=== PATIENT | female | born 1945 | race Caucasian/White ===

== ENCOUNTER → 2017-10-10 | Outpatient (CLI) | payer OTHER ==
[~2017-10-10] MED LIST: AMITRIPTYLINE H25 M2 PO; ASPIR 8181 MG PO; ASPIRIN325 PO; CLARITIN10 MG PO; COREG3.125 MG PO; DIABETA 5MG TABL5 MG PO; EFFIENT10 MG PO; GLYBURIDE 2.52.5 MG PO; LISINOPRIL5 MG PO; METFORMIN HCL500 MG PO; NORCO 5-325 TA1 EACH PO; PREDNISONE 20 M20 M1 PO; SIMVASTATIN40 MG PO; VENTOLIN HFA 1818 GM INH; VITAMIN D3400 UNIT PO
== END ==
LOC: M.MRI 10:44
DX: G44.52 New daily persistent headache (NDPH) (principal); R53.83 Other fatigue

== ENCOUNTER → 2017-12-05 | Outpatient (CLI) | payer OTHER ==
--- NOTE | 2017-12-08 18:02 | SLEEP ---
[address] [address] SLEEP STUDY REPORT Name: ONUR ALEJANDRA Room: [facility]#: [id number] Admission: 12/05/17 Attend Phys: Jean Carlos Reinoso Discharge: Date of : 45 Report #: [id number] THIS REPORT FOR: //name// CC: Cherelle Johns This study has been reviewed in its entirety by a board certified sleep specialist DATE OF SERVICE: 12/07/2017 ATTENDING PHYSICIAN: Dr. Cherelle Johns. The patient is 71 years old who weighs 154 pounds and is 64 inches tall with a BMI of 26.4. The patient's [place] score was 9. The patient underwent a diagnostic sleep study at [facility] to rule out ROSEY. During the night study, the patient spent 463 minutes in bed and slept for 252 minutes with a low sleep efficiency of 54%. Sleep latency was 35 minutes, which was prolonged with a REM latency of 241 minutes. Overall, sleep architecture showed normal stage 1 and stage 2 sleep, increased slow wave and slightly reduced REM sleep, which was 16% of the total sleep time. During the night study, the patient had 1 central apnea, no mixed apneas and no obstructive apneas. The patient had 27 hypopneas. The patient's apnea hypopnea index was 6.7 per hour. REM index of 22.5 per hour and a supine index of 7.5 per hour. EKG monitoring revealed normal sinus rhythm. Average heart rate was 78 beats per minute. No sustained arrhythmias were observed. PLMs were seen at an index of 86 per hour and 22 per hour caused EEG arousals. Nocturnal oximetry study revealed an average oxygen saturation of 91% with a low dose of 81%. 77 minutes were spent at an oxygen saturation between 80% and 89%. There was a sustained pattern of nocturnal hypoxia, but majority of the time, oxygen saturation remained between 85% and 89% suggesting hypoventilation. Due to low AHI, the patient did not meet the split night criteria for CPAP initiation. IMPRESSION: 1. Mild sleep apnea-hypopnea syndrome with moderate increase during REM sleep. Total AHI of 6.7 per hour with a REM AHI of 22.5 per hour. 2. Mild sustained nocturnal hypoxia suggesting hypoventilation. 3. Severe periodic limb movements at an index of 86 per hour and 22 per hour [place] [address] SLEEP STUDY REPORT Name: ONUR ALEJANDRA Room: [facility]#: [id number] Admission: 12/05/17 Attend Phys: Jean Carlos Reinoso Discharge: Date of : 45 Report #: [id number] RECOMMENDATIONS: 1. The patient did not meet the split night criteria due to low AHI. If the patient is clinically symptomatic, then the patient's sleep apnea can be treated with either an oral appliance or a trial of CPAP titration. 2. If the patient undergoes CPAP titration, then she should be followed up in 4-6 weeks to assess compliance with CPAP and to document clinical improvement. 3. Weight loss is advised. 4. Avoid central nervous system depressants. 5. The patient should also be further evaluated for symptoms of restless legs during the day. 6. The patient had reduced sleep efficiency of 54%. If this is a chronic condition, then it should be further evaluated and treated according to the etiology. <ELECTRONICALLY SIGNED> By: Pro Ryder MD 12/08/17 1802 2125 [id number] Ryder MD /nt
== END ==
LOC: M.SLEEPLAB 19:47
DX: G47.9 Sleep disorder, unspecified (principal); R09.02 Hypoxemia; R53.83 Other fatigue

== ENCOUNTER 2018-08-07 09:26 | Inpatient (IN) | payer OTHER ==
[~2018-08-07] VITALS: Ht 165.1 cm; Wt 72.6 kg
[2018-08-07 09:27] VITALS: BP 166/68
[2018-08-07] MEDS ORDERED: ATORVASTATIN CA40 MG PO (09:39)
[2018-08-07] MEDS ORDERED: AMARYL2 MG PO (09:40)
[2018-08-07] MEDS ORDERED: LISINOPRIL5 MG PO (09:40)
[2018-08-07] MEDS ORDERED: REPAGLINIDE1 MG PO (09:40)
[2018-08-07] MEDS ORDERED: TOUJEO SOL300 UNIT/1 SUBQ (09:41)
[2018-08-07 09:43] LABS: ABSOLUTE BASOPHILS 0.2 thou/uL (0.0-0.2); ABSOLUTE EOSINOPHILS 0.2 thou/uL (0.0-0.7); ABSOLUTE LYMPHOCYTES 2.3 thou/uL (0.8-5.3); ABSOLUTE MONOCYTES 0.8 thou/uL (0.0-1.2); ABSOLUTE NEUTROPHILS 15.2 thou/uL (1.6-8.1); BASOPHILS 1.1 %; EOSINOPHILS 0.9 %; HEMATOCRIT 43.4 % (37.0-47.0); HEMOGLOBIN 13.9 gm/dL (12.0-15.0); LYMPHOCYTES 12.1 %; MCH 26.7 pg (26.0-34.0); MCHC 32.1 g/dL (28.0-37.0); MCV 82.9 fL (80.0-100.0); MONOCYTES 4.2 %; MPV 7.7 fl. (7.2-11.1); NUCLEATED RBCS 0 /100WBC; PLATELET COUNT* 423 thou/uL (150-400); POLYS 81.7 %; RBC 5.23 mil/uL (4.20-5.00); RDW-CV 14.5 % (10.5-14.5); WBC 18.6 thou/uL (4.0-11.0)
[2018-08-07 09:54] LABS: PROTIME 10.1 Seconds (9.20-11.50)
[2018-08-07 09:57] LABS: ANION GAP 7 mmol/L (7-16); BUN 18 mg/dL (7-18); CALCIUM 8.7 mg/dL (8.5-10.1); CHLORIDE 103 mmol/L (98-107); CO2 30 mmol/L (21-32); CREATININE 0.8 mg/dL (0.6-1.3); GLUCOSE 194 mg/dL (70-99); POTASSIUM 3.7 mmol/L (3.5-5.1); SODIUM 140 mmol/L (136-145)
[2018-08-07 10:07] LABS: ALBUMIN 3.2 g/dL (3.4-5.0); ALKALINE PHOSPHATASE 161 U/L (46-116); CK-MB MASS 2.1 ng/mL (<0.5-3.6); LIPASE 102 U/L (73-393); MAGNESIUM 1.8 mg/dL (1.8-2.4); NT-PRO BRAIN NAT PEPTIDE 356 pg/mL (<300); SGOT 9 U/L (15-37); SGPT 15 U/L (30-65); TOTAL BILIRUBIN 0.4 mg/dL (<0.1-1.0); TOTAL PROTEIN 7.5 g/dL (6.4-8.2); TROPONIN-I LEVEL <0.06 ng/mL (<0.06)
[2018-08-07 12:26] VITALS: BP 142/57
--- NOTE | 2018-08-07 12:48 | NUR ---
PT ARRIVED FROM ER ABOUT 1235. PT STABLE. TELE ON. IV PATENT. UP AD JERI. CALL LIGHT WITHIN REACH. WILL CONTINUE TO MONITOR.
[2018-08-07 13:18] VITALS: BP 152/85
[2018-08-07 16:00] VITALS: BP 132/55
[2018-08-07 16:19] LABS: URINE BILIRUBIN NEGATIVE (Negative); URINE BLOOD NEGATIVE (Negative); URINE CLARITY CLEAR; URINE COLOR YELLOW; URINE GLUCOSE-RANDOM 3+ (Negative); URINE KETONES NEGATIVE (Negative); URINE LEUKOCYTES-REFLEX NEGATIVE (Negative); URINE NITRITE-REFLEX NEGATIVE (Negative); URINE PROTEIN NEGATIVE (Negative)
--- NOTE | 2018-08-07 16:32 | NUR ---
PT A&Ox4. UP AD JERI. VITALS STABLE. HOME MEDS GIVEN. COMPLAINS OF CHEST PAIN THAT HAS MINIMAL RELIEF WITH ASPIRIN AND NITRO. 2LO2, WEARS 2LO2 AT HOME ONLY AT NIGHT. STATES SHE HAS SLEEP APNEA BUT DOES NOT WEAR CPAP OR BIPAP. IV L WRIST PATENT. STRESS TEST SCHEDULED FOR TOMORROW. CALL LIGHT WITHIN REACH. WILL CONTINUE TO MONITOR.
[2018-08-07 16:46] LABS: AMP/METHAMP Negative (Negative); BARBITURATES Negative (Negative); BENZODIAZEPINES Negative (Negative); COCAINE Negative (Negative); METHADONE Negative (Negative); OPIATES Negative (Negative); PCP Negative (Negative); THC Negative (Negative)
[2018-08-07 19:50] VITALS: BP 162/70
[2018-08-08] VITALS: BP 133/54
--- NOTE | 2018-08-08 01:12 | NUR ---
ASSUMED CARE OF PT AT 1900. PT IS ALERT AND ORIENTED. VSS. PERRLA. NO COMPLAINTS OF PAIN. PT IS IN SINUS RYTHM ON THE TELEMETRY. PT IS RESTING COMFORTABLY IN BED. RESPIRATIONS ARE EVEN AND NONLABORED. WILL CONTINUE TO MONITOR PT.
[2018-08-08 04:00] VITALS: BP 118/50
[2018-08-08 04:01] LABS: CALCIUM 8.3 mg/dL (8.5-10.1); CREATININE 0.8 mg/dL (0.6-1.3); POTASSIUM 3.7 mmol/L (3.5-5.1)
[2018-08-08 08:00] VITALS: BP 124/54
--- NOTE | 2018-08-08 12:03 | NUR ---
MET WITH PT'S DTR TO DISCUSS HOME SITUATION/DC PLANNING. PT OFF UNIT FOR TEST. PER DTR/GREGG, PT LIVES ALONE IN APT, DTR LIVES IN SAME COMPLEX. PT IS INDEPENDENT WITH ADLS. USES O2 AT NIGHT. PT HASN'T HAD HH. WILL FOLLOW
[2018-08-08] MEDS ORDERED: COMBIVENT INH (15:58)
[2018-08-08] MEDS ORDERED: OMEPRAZOLE20 M2 PO (15:58)
[2018-08-08 16:43] VITALS: BP 112/48
--- NOTE | 2018-08-08 17:06 | CARDNUC ---
[place] [address] CARDIAC NUCLEAR IMAGING REPORT Name: ONUR ALEJANDRA Room: [address] IN [facility]#: [id number] Admission: 08/07/18 Attend Phys: Rae Ward MD Discharge: Date of : 45 Date of Service: 08/08/18 1706 Report #: [id number] THIS REPORT FOR: //name// APPROVED REPORT Study performed: 08/07/2018 16:10:00 Indication: Chest pain Patient Location: In-Patient Room #: 225 Stress Tech: Georgiana Asher Stress Nurse: Tamara Mayer RN Ht: 5 ft 5 in Wt: 160 lbs BSA: 1.80 m2 BMI: 26.62 Medical History Medical History: mi, cad, hyperlipidemia, diabetes, copd Medications: asa-81, atorvastatin, lisinopril Allergies: nkda Cardiac Risk Factors: age, hyperlipidemia, diabetes Previous Cardiac Procedures: pci Exercise History: Sedentary Resting Data Rest SPECT myocardial perfusion imaging was performed in supine position 30 minutes following the intravenous injection of 10.7 mCi of Tc-99m Sestamibi. Time of rest injection: 10:00 The images were gated to evaluate regional wall motion and calculate left ventricular ejection fraction. Administration Route: IV Administration Site: Left Arm Pharmacologic Stress Pharmacologic stress test was performed by injecting Regadenoson 0.4 mg IV push over 10-15 seconds immediately followed by the intravenous injection of 30.5 mCi of Tc-99m Sestamibi. Time of stress injection: 11:30 Administration Route: IV Administration Site: Left Arm Heart Rate at time of stress injection: 113 bpm. Gated Stress SPECT was performed 40 minutes after stress injection. The images were gated to evaluate regional [place] [address] CARDIAC NUCLEAR IMAGING REPORT Name: ONUR ALEJANDRA Room: [address]#: [id number] Admission: 08/07/18 Attend Phys: Rae Ward MD Discharge: Date of : 45 Date of Service: 08/08/18 1706 Report #: [id number] left ventricular ejection fraction. Prone imaging was performed. Stress Test Details Stress Test: Pharmacologic stress testing performed using 0.4 mg of regadenoson per 5 mL given IV over 10 seconds. Reason for pharmacologic stress test: physical limitation. HR Max Heart Rate (APMHR): 148 bpm Resting HR: 108 bpm Target HR (85% APMHR): 125 bpm Max HR Achieved: 113 bpm % of APMHR: 76 Recovery HR: 111 bpm BP Resting BP: 125/48 mmHg Max BP: 108/48 mmHg Recovery BP: 104/50 mmHg ECG Resting ECG: sinus rhythm with PACs and diffuse ST elevation consistent with early repolarization Stress ECG: sinus rhythm with PACs and diffuse ST elevation consistent with early repolarization ST Change: None Arrhythmia: None Recovery ECG: sinus rhythm with PACs and diffuse ST elevation consistent with early repolarization Recovery ST Change: None Recovery Arrhythmia: None Clinical Reason for Termination: Completed protocol Exercise duration: 0 min sec Exercise capacity: 1 METs The patient tolerated Lexiscan infusion without significant symptoms. Nurse Comments pt tolerated well. gait too unsteady to walk on treadmill Stress ECG Conclusion The baseline 12-lead EKG shows a sinus rhythm with occasional premature atrial contractions. There is diffuse ST elevation consistent with early rep[place]ization[place] [address] CARDIAC NUCLEAR IMAGING REPORT Name: NYONUR Nirav Room: [address] IN [facility]#: [id number] Admission: 08/07/18 Attend Phys: Rae Ward MD Discharge: Date of : 45 Date of Service: 08/08/18 1706 Report #: [id number] Study: Good Artifact: Mild Diaphragmatic artifact Study Data At rest, the left ventricular ejection fraction was 85%.. Post stress, the left ventricular ejection was 78%.. TID = 1.06. Perfusion Perfusion images obtained in the supine position at rest and post Lexiscan stress show mild photopenia in the inferior wall that resolves completely with post stress prone imaging suggesting diaphragmatic attenuation artifact. There were no other significant fixed or reversible defects. Wall Motion Normal left ventricular wall motion. Nuclear Conclusion ECG Findings: negative for ischemia Clinical Findings: negative for ischemia Nuclear Findings: negative for ischemia Exercise Capacity: not assessed Left Ventricular Function: normal Risk Study: low Myocardial perfusion images show no defect to suggest infarct or ischemia. Left ventricular systolic function is normal on gated studies. This is a low risk study. <Conclusion> The baseline 12-lead EKG shows a sinus rhythm with occasional premature atrial contractions. There is diffuse ST elevation consistent with early repolarization. <ELECTRONICALLY SIGNED> By: Сергей Martínez MD, FACC 08/08/18 1706 05 05 Сергей Martínez MD, FACC /INF
--- NOTE | 2018-08-08 17:26 | 2DMMODE ---
[place] [address] 2 D/M-MODE ECHOCARDIOGRAM Name: ONUR ALEJANDRA Room: [address] IN [facility]#: [id number] Admission: 08/07/18 Attend Phys: Rae Ward MD Discharge: Date of : 45 Date of Service: 08/08/18 1725 Report #: [id number] THIS REPORT FOR: //name// APPROVED REPORT Study performed: 08/08/2018 13:53:57 EXAM: Comprehensive 2D, Doppler, and color-flow Echocardiogram Patient Location: In-Patient Room #: [facility] Status: routine BSA: 1.80 HR: 82 bpm BP: 118/50 mmHg Rhythm: NSR Other Information Study Quality: Good Indications Dyspnea Chest Pain 2D Dimensions IVSd: 13.36 (7-11mm) LVOT Diam: 19.30 (18-24mm) LVDd: 42.89 mm PWd: 12.81 (7-11mm) Ascending Ao: 28.44 (22-36mm) LVDs: 28.02 (25-40mm) Aortic Root: 31.76 mm Volumes Left Atrial Volume (Systole) LA ESV Index: 29.70 mL/m2 Aortic Valve AoV Peak Matt.: 1.53 m/s AO Peak Gr.: 9.41 mmHg LVOT Max P.95 mmHg AO Mean Gr.: 5.01 mmHg LVOT Mean P.48 mmHg LVOT Max V: 1.22 m/s AO V2 VTI: 29.95 cm LVOT Mean V: 0.70 m/s ANKITA (VTI): 2.36 cm2 LVOT V1 VTI: 24.15 cm Mitral Valve E/A Ratio: 1.10 MV Decel. Time: 184.40 [place] [address] 2 D/M-MODE ECHOCARDIOGRAM Name: ONUR ALEJANDRA Room: [address] IN [facility].#: [id number] Admission: 08/07/18 Attend Phys: Rae Ward MD Discharge: Date of : 45 Date of Service: 08/08/18 1725 Report #: [id number] MV E Max Matt.: 1.13 m/s MV PHT: 53.48 ms MVA (PHT): 4.11 cm2 TDI E/Lateral E': 10.27 E/Medial E': 8.69 Medial E' Matt.: 0.13 m/s Lateral E' Matt.: 0.11 m/s Pulmonary Valve PV Peak Matt.: 0.99 m/s PV Peak Gr.: 3.94 mmHg Tricuspid Valve RAP Estimate: 5.00 mmHg TR Peak Gr.: 29.18 mmHg RVSP: 34.00 mmHg PA Pressure: 34.00 mmHg Left Ventricle The left ventricle is normal size. There is normal LV segmental wall motion. Mild concentric left ventricular hypertrophy. Left ventricular systolic function is normal. LVEF is 60-65%. Transmitral Doppler flow pattern suggests impaired LV relaxation. Right Ventricle The right ventricle is normal size. The right ventricular systolic function is normal. Atria Left atrium is mildly dilated. The right atrium size is normal. Aortic Valve Mild aortic valve sclerosis. No aortic regurgitation is present. There is no aortic valvular stenosis. Mitral Valve The mitral valve is normal in structure. There is no mitral valve regurgitation noted. No evidence of mitral valve stenosis. Tricuspid Valve The tricuspid valve is normal in structure. Trace tricuspid regurgitation. The RVSP is 30-35 mmHg. Pulmonic Valve The pulmonary valve is normal in structure. There is no pulmon[place] [address] 2 D/M-MODE ECHOCARDIOGRAM Name: ONUR ALEJANDRA Room: [address]#: [id number] Admission: 08/07/18 Attend Phys: Rae Ward MD Discharge: Date of : 45 Date of Service: 08/08/18 1725 Report #: [id number] Great Vessels The aortic root is normal in size. IVC is normal in size and collapses >50% with inspiration. Pericardium There is no pericardial effusion. <Conclusion> The left ventricle is normal size. Mild concentric left ventricular hypertrophy. Left ventricular systolic function is normal. LVEF is 60-65%. Transmitral Doppler flow pattern suggests impaired LV relaxation. Left atrium is mildly dilated. Trace tricuspid regurgitation. The RVSP is 30-35 mmHg. IVC is normal in size and collapses >50% with inspiration. <ELECTRONICALLY SIGNED> By: Сергей Martínez MD, FACC 08/08/18 1725 24 24 Сергей Martínez MD, FACC /INF
--- NOTE | 2018-08-08 17:35 | EKG ---
[place] [address] ELECTROCARDIOGRAM REPORT Name: ALEJANDRAONUR Nirav Room: [address] ADM IN [facility].#: [id number] Admission: 08/07/18 Attend Phys: Rae Ward MD Discharge: Date of : 45 Report #: [id number] THIS REPORT FOR: //name// [facility] ED Test Date: 2018-08-07 Test Time: 09:26:34 Pat Name: ONUR ALEJANDRA Department: Room: [facility] Gender: F Oracle Architect: : 1945 Requested By: Singh Martin Order Number: [id number] MD: Сергей Martínez Measurements Intervals [place] Rate: 87 P: 34 [place]: 193 QRS: 29 QRSD: 84 T: 56 QT: 351 QTc: 423 Interpretive Statements Sinus rhythm Atrial premature complex Compared to ECG 11/06/2015 11:33:29 Atrial premature complex(es) now present Electronically Signed On 08-08-2018 17:35:12 CDT by Сергей Martínez [email or web address] <ELECTRONICALLY SIGNED> By: Сергей Martínez MD, [facility] 08/08/18 1735 5 5 Сергей Martínez MD, [facility] /EPI
--- NOTE | 2018-08-08 17:40 | EKG ---
[place] [address] ELECTROCARDIOGRAM REPORT Name: ONUR ALEJANDRA Room: [address] ADM IN [facility]#: [id number] Admission: 08/07/18 Attend Phys: Rae Ward MD Discharge: Date of : 45 Report #: [id number] THIS REPORT FOR: //name// [facility] Test Date: 2018-08-08 Test Time: 08:24:52 Pat Name: ONUR ALEJANDRA Department: Room: [address] Gender: F Suppression Crew Leader: : 1945 Requested By: Rae Ward Order Number: [id number] Reading MD: Сергей Martínez Measurements Intervals [place] Rate: 83 P: -72 MT: 176 QRS: 27 QRSD: 92 T: 77 QT: 363 QTc: 427 Interpretive Statements Sinus or ectopic atrial rhythm Atrial premature complexes Abnormal R-wave progression, early transition Minimal ST elevation, inferior leads Compared to ECG 11/06/2015 11:33:29 Ectopic atrial rhythm now present Atrial premature complex(es) now present ST (T wave) deviation now present Sinus rhythm no longer present Electronically Signed On 08-08-2018 17:39:51 CDT by Сергей Martínez [email or web address] <ELECTRONICALLY SIGNED> By: Сергей Martínez MD, FACC 08/08/18 1739 3 3 Сергей Martínez MD, FAC /EPI
[2018-08-08 17:47] VITALS: BP 112/48
--- NOTE | 2018-08-08 18:45 | NUR ---
RECEIVED REPORT. ASSUMED CARE OF PT AROUND 0730. PT A&O X4. VSS. CLIENT DIRECTOR IN PLACE TRACING SR TO SA THIS SHIFT. AM ASSESSMENT AND VITALS COMPLETED CHARTED. PT COMPLETED STRESS TEST AND ECHO - BOTH NEGATIVE. DISCHARGE ORDERS RECEVIED. DISCHARGE COMPLETED DOCUMENTED. DISCHARGE SUMMARY, SCRIPS AND CARE NOTES GONE OVER WITH PT, PT COMMUNICATES UNDERSTANDING. IV AND CLIENT DIRECTOR REMOVED. ALL BELONGINGS GATHERED AND READY TO SEND HOME WITH PT. PT WAITING FOR HER DAUGHTER TO ARRIVE TO TAKE HER HOME. LOW FALL RISK PRECAUTIONS IN PLACE. CALL LIGHT IS WITHIN REACH. HOURLY ROUNDING PERFORMED.
--- NOTE | 2018-08-09 10:56 | CON ---
[address] [address] CONSULTATION Name: NYONUR Nirav Room: [address] IN ..#: [id number] Admission: 08/07/18 Attend Phys: Rae Ward MD Discharge: 08/08/18 Date of : 45 Report #: [id number] THIS REPORT FOR: //name// CC: Italo Ward DATE OF SERVICE: 08/07/2018 HISTORY OF PRESENT ILLNESS: The patient is a 72-year-old female with a history of coronary artery disease, status post prior multivessel stenting approximately 5 years ago at [facility]. She was awake at approximately 1:00 this morning when she noted a central chest discomfort that was quite severe and has waxed and waned throughout the morning. She presented to [facility] and there were no electrocardiographic or enzymatic changes to suggest acute myocardial injury. The pain has persisted to a modest degree. It was not clear that it responded to nitrates or aspirin. The patient has risk factors for coronary artery disease including a significant prior cigarette smoking history, though the patient stopped several years ago, approximately 5. She also has a history of hypertension and diabetes. PAST MEDICAL HISTORY: Remarkable for COPD, obstructive sleep apnea, hysterectomy, tonsillectomy and prior nephrectomy. FAMILY HISTORY: Negative for premature coronary artery disease. SOCIAL HISTORY: The patient does not drink and no longer smokes. She is retired. REVIEW OF SYSTEMS: Remarkable for the following positives. RESPIRATORY: She notes cough with some sputum production and chronic obstructive pulmonary disease. ENDOCRINE: She has insulin requiring diabetes. MUSCULOSKELETAL: She notes mild arthritic complaints. ENT: She notes presbycusis and does have dentures. Remainder is unremarkable. PHYSICAL EXAMINATION: GENERAL: Reveals a nonacutely distressed elderly female. VITAL SIGNS: Blood pressure 155/70, pulse rate is 74, respirations are 18 per minute. NECK: Jugular venous pressure is normal. CHEST: Reveals scattered rhonchi and rales with a prolonged expiratory phase without wheezing. CARDIOVASCULAR: Reveals normal first and second heart sounds with a question [place] [address] CONSULTATION Name: ONUR ALEJANDRA Nirav Room: [address] IN [facility]#: [id number] Admission: 08/07/18 Attend Phys: Rae Ward MD Discharge: 08/08/18 Date of : 45 Report #: [id number] ABDOMEN: Mildly obese. EXTREMITIES: Without edema with intact femoral, pedal and radial pulses. There are no deformity or arthritic changes. IMPRESSION: 1. Chest pain; this may reflect ischemic etiology, though it has been atypical. 2. Coronary artery disease, status post prior multivessel stenting approximately 5 years ago. 3. Significant antecedent cigarette smoking history. 4. Chronic obstructive pulmonary disease. 5. Prior surgeries including hysterectomy, tonsillectomy and nephrectomy. RECOMMENDATIONS: 1. Agree with current therapy. 2. Would plan Lexiscan Cardiolite testing to address the presence or absence of inducible ischemia in the magnitude of that defect. Subsequent therapy would be contingent on the results of that study. Thank you for allowing us to see the patient. <ELECTRONICALLY SIGNED> By: Ilir Meyer MD, FACC 08/09/18 1056 1536 [id number] Meyer MD, FACC /nt
== END 2018-08-08 19:10 | disposition home or self-care (01) | DRG 204 ==
LOC: M.ERS 09:26 → M.2W 11:33 → M.TBA-ER 11:33 → M.2W 12:39
PROVIDERS: Family Medicine; ADMIT Family Medicine
DX: R07.81 Pleurodynia (principal); J96.11 Chronic respiratory failure with hypoxia; E78.00 Pure hypercholesterolemia, unspecified; E11.9 Type 2 diabetes mellitus without complications; J44.9 Chronic obstructive pulmonary disease, unspecified; G47.33 Obstructive sleep apnea (adult) (pediatric); I25.10 Atherosclerotic heart disease of native coronary artery without angina pectoris; D72.829 Elevated white blood cell count, unspecified; E78.5 Hyperlipidemia, unspecified; Z79.82 Long term (current) use of aspirin; I25.2 Old myocardial infarction; Z95.5 Presence of coronary angioplasty implant and graft; Z90.710 Acquired absence of both cervix and uterus; Z87.891 Personal history of nicotine dependence; Z90.5 Acquired absence of kidney; Z79.899 Other long term (current) drug therapy

== ENCOUNTER 2020-11-04 17:06 | Emergency (ER) | payer OTHER ==
[~2020-11-04] VITALS: Ht 162.6 cm; Wt 70.3 kg
[~2020-11-04 17:06] MED LIST changes: +AMARYL2 MG PO; +ATORVASTATIN CA40 MG PO; +COMBIVENT INH; +OMEPRAZOLE20 M2 PO; +REPAGLINIDE1 MG PO; +TOUJEO SOL300 UNIT/1 SUBQ
[2020-11-04] MEDS ORDERED: ELIQUIS5 MG PO (18:47)
[2020-11-04 20:40] LABS: URINE BILIRUBIN NEGATIVE (Negative); URINE BLOOD 1+ (Negative); URINE CLARITY CLOUDY; URINE COLOR YELLOW; URINE GLUCOSE-RANDOM 3+ (Negative); URINE KETONES NEGATIVE (Negative); URINE LEUKOCYTES-REFLEX TRACE (Negative); URINE NITRITE-REFLEX NEGATIVE (Negative); URINE PROTEIN 1+ (Negative); URINE SPECIFIC GRAVITY >= 1.030 (1.005-1.030); URINE UROBILINOGEN 0.2 E.U./dl (0.2-1.0)
[2020-11-04 20:50] LABS: HYALINE CASTS 4-10 Moderate /LPF (None Seen); SQUAMOUS >10 Many /LPF (0-3)
[2020-11-04 20:51] LABS: BACTERIA-REFLEX >30 Many /HPF (None Seen); CRYSTALS None Seen /LPF (None Seen); MUCUS None Seen strn/LPF (None Seen); URINE RBC 0-2 Rare /HPF (0-2); URINE WBC-REFLEX >25 Many /HPF (0-5); WBC CLUMPS Few (None Seen)
[2020-11-04 21:38] LABS: NUCLEATED RBCS 0 /100WBC
[2020-11-04 21:42] LABS: HEMATOCRIT 44.7 % (37.0-47.0); HEMOGLOBIN 14.4 gm/dL (12.0-15.0); MCH 26.7 pg (26.0-34.0); MCHC 32.1 g/dL (28.0-37.0); MPV 7.8 fl. (7.2-11.1); PLATELET COUNT* 320 thou/uL (150-400); RBC 5.38 mil/uL (4.20-5.00); RDW-CV 15.1 % (10.5-14.5); WBC 13.7 thou/uL (4.0-11.0)
[2020-11-04] MEDS ORDERED: CEPHALEXIN500 MG PO (21:49)
[2020-11-04 21:51] LABS: CALCIUM 8.7 mg/dL (8.5-10.1); CREATININE 1.4 mg/dL (0.6-1.3); POTASSIUM 4.3 mmol/L (3.5-5.1)
[2020-11-04 21:55] LABS: ALBUMIN 3.3 g/dL (3.4-5.0); TOTAL BILIRUBIN 0.4 mg/dL (<0.1-1.0); TOTAL PROTEIN 7.4 g/dL (6.4-8.2)
[2020-11-04 22:05] VITALS: BP 142/64
[2020-11-04 22:19] LABS: ABSOLUTE LYMPHOCYTES 3.8 thou/uL (0.8-5.3); ABSOLUTE NEUTROPHILS 8.9 thou/uL (1.6-8.1)
[2020-11-04 22:20] LABS: PLATELET ESTIMATE ADEQUATE
[2020-11-04 22:54] LABS: ESR (SEDRATE) 9 mm/hr (0-30)
== END 2020-11-04 22:05 | disposition home or self-care (01) ==
LOC: M.ERS 17:06
PROVIDERS: Physician Assistant
DX: R51.9 Headache, unspecified (principal); N39.0 Urinary tract infection, site not specified; I25.2 Old myocardial infarction; I10 Essential (primary) hypertension; E78.00 Pure hypercholesterolemia, unspecified; J44.9 Chronic obstructive pulmonary disease, unspecified; M19.90 Unspecified osteoarthritis, unspecified site; Z95.5 Presence of coronary angioplasty implant and graft; Z79.899 Other long term (current) drug therapy; Z79.4 Long term (current) use of insulin; Z87.891 Personal history of nicotine dependence